=== PATIENT | female | born 1970 | race Caucasian/White ===

== ENCOUNTER 2022-12-29 16:26 | Emergency (ER) | payer OTHER ==
[~2022-12-29] VITALS: Ht 165.1 cm; Wt 78.6 kg
[~2022-12-29 16:26] MED LIST: AMITRIPTYLINE H10 MG PO; DAILY MULTIPLE1 EACH PO; HYDROCODON-ACE1 EAC3 PO; MACRODANTIN100 MG PO; NORCO 5-325 TA1 EACH PO; PERCOCET 5-3251 EACH PO; PYRIDIUM200 MG PO
--- OUTSIDE RECORDS SUMMARY | 2022-12-29 16:30 | XMS ---
PreManage Notification: LISET ACOSTA Security Insulation Installer Events No recent Security Events currently on file CRITERIA MET - [facility] PROVIDERS SHARLENE WILHELM Physician Math Professor Current PHONE: Unknown Norma has no Care Guidelines for this patient. EDominik VISIT COUNT (12 MO.) 1 IVONNE Liu TOTAL 1 NOTE: Visits indicate total known visits. ED/UCC VISIT TRACKING (12 MO.) 12/29/2022 16:27 IVONNE Jett OR TYPE: Emergency COMPLAINT: - NAUSEA INPATIENT VISIT TRACKING (12 MO.) No inpatient visits to display in this time frame [email or web address]
[2022-12-29] MEDS ORDERED: LEVOTHYROXINE100 MCG PO (17:24)
[2022-12-29] MEDS ORDERED: BUPRENORPHINE HC2 MG SL (17:24)
[2022-12-29] MEDS ORDERED: ATORVASTATIN CA20 MG PO (17:25)
[2022-12-29] MEDS ORDERED: OLANZAPINE7.5 MG PO (17:25)
[2022-12-29] MEDS ORDERED: ELIQUIS5 MG PO (19:17)
[2022-12-29] MEDS ORDERED: DILTIAZEM HCL60 MG PO (19:17)
[2022-12-29] MEDS ORDERED: ONDANSETRON ODT8 MG PO (19:17)
[2022-12-29 19:50] VITALS: BP 125/86
--- NOTE | 2022-12-30 17:41 | EKG ---
[facility] [address] [facility] [place] [id number] Signed Atrial fibrillation with rapid ventricular response Marked ST abnormality, possible inferior subendocardial injury Abnormal ECG No previous ECGs available Confirmed by ISELA JOHNSON MD ([id number]) on 12/30/2022 5:41:37 PM Electronically Signed By: ISELA JOHNSON MD 12/30/22 174 PATIENT NAME: LISET ACOSTA Electrocardiogram DATE OF : 70 PHYSICIAN: ISELA JOHNSON MD REPORT #: [id number] REPORT IS CONFIDENTIAL AND NOT TO BE RELEASED WITHOUT AUTHORIZATION
--- NOTE | 2022-12-30 17:42 | EKG ---
[facility] [address] [facility] [place] [address] Signed Normal sinus rhythm Nonspecific ST and T wave abnormality Abnormal ECG When compared with ECG of 29-DEC-2022 16:45, (Unconfirmed) Sinus rhythm has replaced Atrial fibrillation Vent. rate has decreased BY [address] no longer depressed in Inferior leads T wave inversion no longer evident in Inferior leads T wave inversion more evident in Anterior leads Confirmed by ISELA JOHNSON MD ([id number]) on 12/30/2022 5:41:55 PM Electronically Signed By: ISELA JOHNSON MD 12/30/221741 PATIENT NAME: LISET ACOSTA Electrocardiogram DATE OF : 70 PHYSICIAN: ISELA JOHNSON MD REPORT #: [id number] REPORT IS CONFIDENTIAL AND NOT TO BE RELEASED WITHOUT AUTHORIZATION
== END 2022-12-29 19:50 | disposition home or self-care (01) ==
LOC: ED 16:26
DX: I48.91 Unspecified atrial fibrillation (principal); E83.42 Hypomagnesemia; F17.200 Nicotine dependence, unspecified, uncomplicated; Z88.0 Allergy status to penicillin; Z88.5 Allergy status to narcotic agent; Z79.899 Other long term (current) drug therapy
CPT/HCPCS: 36415; 71045; 80053; 81001; 83605; 83690; 83735; 85025; 85060; 85610; 87502; 93005; 93010; J2405; J3475; J7030; U0003